=== PATIENT | female | born 1985 | race Caucasian/White ===

== ENCOUNTER 2019-06-05 05:33 | Inpatient (IN) ==
--- NOTE | 2019-05-30 15:05 | PAT Medication Instructions ---
Medication Instructions Date of Service May 30, 2019 Home Medications buprenorphine HCl 8 mg sublingual tablet 8 mg SL BID vitamin,calcium,kbhegmrn-kmyr-mxmtt acid tablet 1 tab PO QAM aspirin 81 mg tablet,delayed release 81 mg PO QAM ondansetron 4 mg disintegrating tablet 4 mg PO .COMPLEX ASK your prescriber and surgeon aspirin 81 mg tablet,delayed release 81 mg PO QAM DO NOT take the morning of surgery vitamin,calcium,tabaqcgf-zxda-rwafc acid tablet 1 tab PO QAM Take morning of surgery With a small sip of water, OTHERWISE NOTHING TO EAT OR DRINK AFTER MIDNIGHT: buprenorphine HCl 8 mg sublingual tablet 8 mg SL BID (continue per anesthesiologist, Dr. Pedro Kitchen) ondansetron 4 mg disintegrating tablet 4 mg PO .COMPLEX Other Notes If you have any questions please call us at [phone] or [phone] or [phone] or [phone]
--- NOTE | 2019-05-30 15:50 | Anesthesiology Consultation ---
Date of Service May 30, 2019 Assessment & Plan (1) Encounter for pre-operative examination: - ASA for hx pre-eclampsia: instructions per OB/prescriber - Buprenorphine for hx opioid dependency: discussed with Dr. Pedro Kitchen- to continue as directed perioperatively. - No preop labs: Per OB, no labs to be done at PAT visit; ordered for AM day of c/s. Chart Review Chart Review: Acceptable Risk for Surgery (pending labs AM day of c/s) and Patient seen in Pre Admission Testing Teaching & Discussion Pre-Anesthesia Teaching/Discussion Notes: Instructed NPO after midnight before surgery,except medications with 15 cc of water. Medication instructions provided according to the [facility] guidelines. History Surgery Operation Date: 06/05/19 07:30 Proposed Procedures p Section in LD - Codi Loco MD, FACOG Height/Weight Height: 4 ft 11 in Weight: 51.3 kg Allergies Allergy/AdvReac Type Severity Reaction Status Date / Time No Known Drug Allergies Allergy Verified 05/30/19 14:57 FOOD DYE AdvReac Unknown MIGRAINES Uncoded 05/23/19 14:06 Medications Home Medications Medication Instructions Recorded Confirmed Last Taken buprenorphine HCl 8 mg sublingual 8 mg SL BID tab 05/15/19 05/30/19 Unknown tablet 1 tab PO QAM 05/15/19 05/30/19 Unknown vitamin,calcium,zaongpld-nxbv-tysau acid tablet aspirin 81 mg tablet,delayed 81 mg PO QAM 05/19/19 05/30/19 Unknown release ondansetron 4 mg disintegrating 4 mg PO .COMPLEX tab 05/23/19 05/30/19 Unknown tablet Past Medical History Medical History Anemia History of pre-eclampsia on ASA with current History of seizure disorder Last medically evaluated seizure 14 years ago- per patient, there was discussion of meds but patient did not get them. Since then no further documented seizures, but has had ? pseudoseizures characterized as having headaches/vomiting/body tensing episodes but did not get these evaluated- no issues x ~1 year Exercise / Class Metabolic Activity III < 4 Walking/Shop/Light housework Past Family History Family History Grandmother (Paternal) Breast cancer Mother Dyslipidemia Drinking problem Arthritis Other Anxiety Clotting disorder Depression Kidney disease Briones syndrome Past Surgical History Surgical History History of delivery 2005: emergency c/s d/t pre-eclampsia: spinal vs. epidural used (good pain control during c/s) History of oral surgery Past Anesthesia History No Hx of Anesthesia Complications Mother- ? local anesthesia reaction; no further details History of PONV No Hx of PONV and No Hx of Motion Sickness Social History Smoking Status: Current every day smoker tobacco type: cigarettes Smoking cigarettes per day: 7-8 cigarettes/day; total use x 20 years Do You Dip or Chew Tobacco: No Hx Alcohol Use: No Hx Substance Use: No Last Used Substance Other:: on buprenorphine 2/2 hx opioid dependence Review of Systems related LBP and reflux. Patient denies chest pain, shortness of breath, cough, wheezing, palpitations. Physical Exam Vital Signs VITALS BP 111/72 P 77 TEMP 98.4 SP02 98%RA RESP 16 PHYSICAL Full neck and c-spine range of motion. Full TMJ range of motion. TMD 3 finger breaths Mallampati Score 1 Dentition: full dentures upper/lower; edentulous Lungs: clear throughout to auscultation Cardiac: regular rate and rhythm, no murmurs noted Spine: normal Extremities: no edema
--- NOTE | 2019-05-30 17:54 | History and Physical Report ---
DATE OF ADMISSION: 06/05/2019 ADMIT DIAGNOSES: 1. Intrauterine at 39 and 1/7 weeks. 2. History of a previous section at 37 weeks for preeclampsia, desires repeat. 3. Drug dependence in on Subutex. 4. Positive marijuana screen at her new OB visit. HISTORY OF PRESENT ILLNESS: Maricel is a 34-year-old white female 2, para 0-1-0-1 who presents for repeat section. The patient's history is significant for a primary section, which by operative report is low transverse section at 27 weeks at [facility]. This was complicated by preeclampsia. She delivered a 2 pound 8 ounce baby. She has been on a baby aspirin throughout this and has done well without signs and symptoms of preeclampsia. She does, however, desire a repeat section. She did have a low lying placenta at some point in this which was resolved at 32 weeks. She has a history of drug dependence, is currently on Subutex 8 mg twice daily. She had a positive drug screen for marijuana at her new OB visit. She understands she will be screened on admission. She is Rh negative and received RhoGAM. She notes good movement. A lot of pressure, but no contractions, no bleeding or leaking. ALLERGIES: FOOD DYES, but no known drug allergies. MEDICATIONS: Zofran, Subutex 8 mg twice a day, vitamin and an 81 mg aspirin daily. PAST MEDICAL HISTORY: Significant for the preeclampsia. She has a history of migraines and history of seizures, but seizures have not been an issue for her. She has had varicella vaccination. SOCIAL HISTORY: The patient continues to smoke in this approximately 1 pack a day. She has used marijuana on and off prior to , but denies using it in after her positive urine drug screen. She denies alcohol use. She is on Subutex for history of drug use. PAST SURGICAL HISTORY: Includes . PHYSICAL EXAMINATION: GENERAL: This is a well-developed, well-nourished white female in no acute distress. VITAL SIGNS: Blood pressure 112/71, weighing 113 pounds, BMI is 22. ABDOMEN: Gravid, soft and nontender. EXTREMITIES: Benign. PELVIC: Deferred. LABORATORY DATA: Blood type AB negative, antibody negative, Pap negative, rubella immune, RPR nonreactive, hepatitis B and HIV negative, chlamydia and gonorrhea negative, cystic fibrosis negative, SMA negative. Diabetes screen x2 within normal limits. Panorama low risk male. GBS positive. ASSESSMENT: Maricel is a 34-year-old white female 2, para 0-1-0-1 with a history of a primary low transverse section for severe preeclampsia at 27 weeks in her previous . She desires repeat section. This has also been complicated by Subutex use, positive marijuana screen, Rh negative status, GBS positive. The risks, benefits and side effects of repeat section were discussed with the patient including the risks of anesthesia, bleeding requiring transfusion, infection, poor wound healing, damage to surrounding structures including bowel, bladder, vessels, nerves and ureters with need for further surgery, hospitalization or intervention. Discussed the risk of any surgery including heart attack, blood clot, stroke and . The patient declines sterilization. Discussed that she should bring in her Subutex and its prescription bottle that we will provide that to her while hospitalized, but that she would need to get back on her own prescription in the immediate period and would need to follow up within 1-2 days with her provider. She understands that she will have a short prescription approximately 14 Percocet and that she will receive no further narcotics after that from our office unless there is a complication. She will not need to be treated for group B strep unless labors beforehand. We discussed the possibility of that. Questions were asked and answered. Consent reviewed and signed.
[2019-06-05] MEDS ORDERED: CEFAZOLIN 2,000 MG in SYRINGE 0 ML IV STA (05:37)
[2019-06-05] MEDS ORDERED: CITRIC ACID/SODIUM CITRATE 15 ML UDC PO STA (05:37)
[2019-06-05] MEDS ORDERED: LACTATED RINGER'S 1,000 ML IV STA (05:37)
[2019-06-05 05:58] LABS: Basophils # (auto) 0.03 K/uL (0-0.2); Basophils % (auto) 0.3 %; Eosinophils # (auto) 0.09 K/uL (0-0.5); Eosinophils % (auto) 0.8 %; Hemoglobin 10.4 g/dL (12.0-16.0); Immature Granulocytes # (auto) 0.06 K/uL (0.00-0.02); Immature Granulocytes % (auto) 0.5 %; Lymphocytes # (auto) 3.24 K/uL (1.2-3.4); Lymphocytes % (auto) 29.6 %; Mean Corpuscular Volume 81.4 fL (80-100); Mean Platelet Volume 9.6 fL (7.4-10.4); Monocytes # (auto) 0.81 K/uL (0.11-0.59); Monocytes % (auto) 7.4 %; Neutrophils # (auto) 6.72 K/uL (1.4-6.5); Neutrophils % (auto) 61.4 %; Platelet Count 104 K/uL (130-400); RDW Coefficient of Variation 14.8 % (11.5-14.5); RDW Standard Deviation 43.8 fL (36.4-46.3); Red Blood Count 3.81 M/uL (4.2-5.4); White Blood Count 10.95 K/uL (4.8-10.8)
[2019-06-05 06:01] LABS: Mean Corpuscular Hgb Conc 33.5 g/dL (32-36)
[2019-06-05 06:27] LABS: Appearance Urine Clear (Clear); Bacteria Urine Automated Negative (Negative); Bilirubin Urine Negative (Negative); Blood Urine 1+ (Negative); Color Urine Yellow; Epithelial Cell Urine Auto >30 /lpf (0-5); Glucose Urine UA Negative (Negative); Ketones Urine Negative (Negative); Leukocyte Esterase Urine Negative (Negative); Nitrite Urine Negative (Negative); Specific Gravity Urine 1.015 (1.000-1.030); Urobilinogen Urine Negative (Negative)
[2019-06-05 06:28] LABS: Amphetamines+Metham, Urine Neg (Neg); Barbiturates, Urine Neg (Neg); Benzodiazepine, Urine Neg (Neg); Cocaine, Urine Neg (Neg); MDMA (Ecstacy), Urine Neg (Neg); Methadone, Urine Neg (Neg); Opiate, Urine Neg (Neg); Phencyclidine, Urine Neg (Neg)
[2019-06-05 06:30] LABS: Protein Urine Negative (Negative)
[2019-06-05] MEDS ORDERED: fentaNYL citrate 100 MCG/2 ML VIAL ONE (07:00)
[2019-06-05] MEDS ORDERED: MoRPHine SULFATE PF 1 MG/ML 10 ML AMP/VIAL ONE (07:00)
--- NOTE | 2019-06-05 07:23 | History & Physical Bridge Note ---
Date of Service June 05, 2019 History & Physical Bridge Note I have examined the patient, reviewed the History & Physical and in the interval since the performance of the History & Physical I have noted the following changes of clinical significance: no changes noted
[2019-06-05] MEDS ORDERED: OXYTOCIN 10 UNITS/ML VIAL ONE (07:30)
[2019-06-05] MEDS ORDERED: PHENYLEPHRINE 100MCG/ML 5ML SYR ONE (07:30)
[2019-06-05] MEDS ORDERED: BUPIVACAINE 0.25% 30 ML VIAL ONE (07:36)
[2019-06-05] MEDS ORDERED: LACTATED RINGER'S 500 ML IV PRN (07:43)
[2019-06-05] MEDS ORDERED: NALOXONE HCL 1 MG in SODIUM CHLORIDE 0.9% 1000ML 1,000 ML IV PRN (07:43)
[2019-06-05] MEDS ORDERED: ePHEDrine sulfate 50 MG/ML AMP IV PRN (07:43)
[2019-06-05] MEDS ORDERED: ONDANSETRON INJ 2 MG/ML 2 ML VIAL IV PRN (07:43)
[2019-06-05] MEDS ORDERED: NALOXONE HCL 0.08 MG in SYRINGE 1.8 ML IV PRN (07:43)
[2019-06-05] MEDS ORDERED: NALBUPHINE HCL INJ 10 MG/ML AMP IV PRN (07:43)
[2019-06-05] MEDS ORDERED: MoRPHine SULFATE PF 1 MG/ML 10 ML AMP/VIAL INT SPINAL ONE (07:43)
[2019-06-05] MEDS ORDERED: HYDROmorphone INJ 0.5 MG/0.5 ML SYR IV PRN (07:43)
[2019-06-05] MEDS ORDERED: MoRPHine SULFATE 2 MG/ML CARP IV PRN (07:43)
[2019-06-05] MEDS ORDERED: PROMETHAZINE HCL 12.5 MG in SODIUM CHLORIDE 0.9% 50 ML IV PRN (07:43)
[2019-06-05] MEDS ORDERED: NALOXONE HCL 0.4 MG/1 ML VIAL/CARP IV PRN (07:43)
[2019-06-05] MEDS ORDERED: DiphenhydrAMINE HCL 50 MG/ML VIAL IV PRN (07:43)
[2019-06-05] MEDS ORDERED: NO NARCOTICS OR SEDATIVES SCH (07:45)
[2019-06-05] MEDS ORDERED: DC INTRASPINAL MORPHINE SCH (07:45)
[2019-06-05] MEDS ORDERED: SODIUM CHLORIDE 0.9% 1000ML 1,000 ML IV SCH (07:45)
[2019-06-05] MEDS ORDERED: ONDANSETRON INJ 2 MG/ML 2 ML VIAL ONE (08:01)
[2019-06-05] MEDS ORDERED: MIDAZOLAM HCL 1 MG/ML 2ML VIAL ONE (08:14)
--- NOTE | 2019-06-05 08:31 | Post Operative Brief Note ---
PG Immediate Post Op with CF Date of Surgery June 05, 2019 Pre & Post Diagnosis Operation Date: 06/05/19 07:30 Pre-Op Diagnosis: History of Section intrauterine at 39 weeks Post-Op Diagnosis: History of Section intrauterine at 39 weeks delivery of viable male infant at 0758 Procedure Operation Date: 06/05/19 07:30 Actual Procedures p Repeat lower transverse Section in LD(Bilateral) - Codi Loco MD, FACOG Surgeon Codi Loco MD, FACOG Associate Merchandise Planner Kandis Sutton RN Estimated Blood Loss 500 Findings Consistent with Post-Op Diagnosis Specimens Specimen Description: 1. Cord blood 2. placenta Drains Marie Catheter
--- NOTE | 2019-06-05 09:03 | Anesthesiology Progress Note ---
Date of Service June 05, 2019 Anesthesia Post Procedure Vital Signs Vital Signs: Temp Pulse Resp BP Pulse Ox 06/05/19 09:01 50 L 117/76 06/05/19 09:00 51 L 100 06/05/19 08:55 55 L 100 06/05/19 08:51 51 L 110/73 06/05/19 08:50 51 L 100 06/05/19 07:30 18 06/05/19 07:12 65 124/78 06/05/19 07:10 36.6 C 06/05/19 05:51 36.8 C 06/05/19 05:48 75 130/85 Transfer of Care Handoff Completed per policy Notes Mental Status: alert / awake / arousable Patient Amnestic to Procedure: Yes Nausea / Vomiting: adequately controlled Pain: adequately controlled Airway Patency, RR, SpO2: stable & adequate BP & HR: stable & adequate Hydration State: stable & adequate Neuraxial Anesthesia: was administered and sensory block is resolving Anesthetic Complications: no major complications apparent and Pt Satisfied with anesthetic care
[2019-06-05] MEDS ORDERED: HYDROCORTISONE ACETATE 25 MG SUPP PR PRN (09:06)
[2019-06-05] MEDS ORDERED: MAGNESIUM HYDROXIDE SUSP 30 ML UDC PO PRN (09:06)
[2019-06-05] MEDS ORDERED: DIPHTHERIA/TETANUS/PERTUSSIS 0.5 ML SYR/VIAL IM ONE (09:06)
[2019-06-05] MEDS ORDERED: SENNA 8.6 MG TAB PO PRN (09:06)
[2019-06-05] MEDS ORDERED: SUPERCREAM 0.870% 15 GM JAR EXT PRN (09:06)
[2019-06-05] MEDS ORDERED: BENZOCAINE 20% AER SPR 82.5 GM CAN EXT PRN (09:06)
[2019-06-05] MEDS: KETOROLAC 30 MG/ML VIAL IV PRN ×2 (09:23→19:32)
[2019-06-05] MEDS ORDERED: LACTATED RINGER'S 1,000 ML IV SCH (09:40)
[2019-06-05] MEDS ORDERED: OXYTOCIN 20 UNITS in LACTATED RINGER'S 1,000 ML IV SCH (09:40)
--- NOTE | 2019-06-05 10:10 | Operative Report ---
DATE OF OPERATION: 06/05/2019 PREOPERATIVE DIAGNOSES: 1. Intrauterine at 39+ weeks. 2. History of previous section, desires repeat. POSTOPERATIVE DIAGNOSES: 1. Intrauterine at 39+ weeks. 2. History of previous section, desires repeat. PROCEDURE: Repeat lower transverse section. SURGEON: Codi Loco MD. HOSPICE LIAISON: Kandis Sutton RN. ANESTHESIA: Spinal. ESTIMATED BLOOD LOSS: 500 mL. FLUIDS: 1000 mL. URINE OUTPUT: 250 mL of clear yellow urine drained from the bladder at the end of procedure. INDICATIONS: The patient is a 2, para 1 with a previous section at 28 weeks for severe preeclampsia. She presents today at term for desired repeat section. FINDINGS: Normal uterus, tubes and ovaries were noted bilaterally. She delivered a viable male infant weighing 5 pounds 5 ounces with Apgars of 8 and 9. COMPLICATIONS: None. DRAINS: Marie. DISPOSITION: To Recovery Room in stable condition. DESCRIPTION OF PROCEDURE: The patient was taken to the Operating Room where she was identified verbally and by bracelet. She was seated on the operating table where spinal anesthetic was placed by Anesthesia without difficulty. She was then placed in dorsal supine position with a leftward tilt. A Marie catheter was placed. She was prepped and draped in normal sterile fashion. She was tested and her anesthetic was found to be adequate. Time-out was held identifying correct patient, position and procedure and preoperative antibiotics. A Pfannenstiel skin incision was made over her previous skin incision with a knife, taken down to the underlying layer of fascia with knife and Bovie electrocautery. The fascia was incised with the knife in the midline and taken out laterally with scissors. The superior edge of the fascial incision was grasped, elevated and the underlying layer of rectus muscle was taken off bluntly with scissors. In a similar fashion, the inferior edge of the fascial incision was grasped, elevated and the underlying layer of rectus muscle was taken off bluntly and with scissors. The muscles were bluntly and sharply in the midline. The peritoneum was entered bluntly and the incision was stretched. The bladder blade was placed. The vesicouterine peritoneum was identified and entered with sharp scissors, taken out laterally with scissors and the bladder flap was created digitally. The bladder blade was replaced. The hysterotomy incision was scored with a knife. It was entered with a snap. Copious amounts of clear fluid were released. The incision was stretched with the offset printing operator's fingers. The offset printing operator's hand was placed into the uterus and the head was delivered atraumatically through the hysterotomy incision. The nose and mouth were bulb suctioned. There was no nuchal cord. The rest of the was delivered without difficulty. The nose and mouth were again bulb suctioned. The cord was clamped and cut. The infant was handed off to the waiting presiding steward for drying and attention. Cord blood and segment were obtained. Placenta was extracted from the uterus by massage. The uterus was exteriorized and cleared of all clot and debris with moist laparotomy sponges. Hysterotomy incision was repaired in 2 layers, the first in a running locked 0 Vicryl layer, the second in an imbricating 0 Vicryl layer. A ybijfv-uv-[id number] suture was needed in the midline for hemostasis and then hemostasis was noted to be excellent. Posterior cul-de-sac was irrigated and cleared of all clot and debris. The hysterotomy incision was again inspected and found to be hemostatic. The uterus was reanteriorized. The hysterotomy incision was again inspected and found to be hemostatic. The muscles were reapproximated with several interrupted sutures of 0 Vicryl in the midline. The fascia was reapproximated with 0 Vicryl starting at the corners and meeting at the midline. Subcuticular tissue was hemostatic and the skin was then closed with subcuticular stitch of 4-0 Vicryl. All sponge, lap and needle counts were correct x2. The patient tolerated the procedure well and was taken to the Recovery Room in stable condition. I attest to the content of the Intraoperative Record and any orders documented therein. Any exception s are noted below.
[2019-06-05] MEDS: ACETAMINOPHEN 1,000 MG/100 ML VIAL IV SCH ×2 (10:58→18:08)
[2019-06-05] MEDS: NICOTINE 21 MG/24 HR TDSY TD SCH (13:46)
[2019-06-05] MEDS: SIMETHICONE 80 MG CHEW PO SCH ×3 (13:47→20:08)
[2019-06-05] MEDS ORDERED: Nursing to Pharmacy Communication ONE (16:36)
[2019-06-05] MEDS: BUPRENORPHINE HCL 8 MG SUBL SL SCH (17:14)
[2019-06-05] MEDS: DOCUSATE SODIUM 100 MG CAP PO SCH (20:08)
[2019-06-05] MEDS ORDERED: BUPRENORPHINE HCL 8 MG SUBL SL SCH (21:00)
[2019-06-06] MEDS: KETOROLAC 30 MG/ML VIAL IV PRN (01:37)
[2019-06-06] MEDS ORDERED: ONDANSETRON INJ 2 MG/ML 2 ML VIAL IV PRN (01:44)
[2019-06-06] MEDS ORDERED: KETOROLAC 30 MG/ML VIAL IV PRN (01:44)
[2019-06-06] MEDS ORDERED: MEPERIDINE HCL 50 MG/ML CARP IV PRN (01:44)
[2019-06-06] MEDS ORDERED: DiphenhydrAMINE HCL 50 MG/ML VIAL IV PRN (01:44)
[2019-06-06] MEDS ORDERED: PROMETHAZINE HCL 25 MG in SODIUM CHLORIDE 0.9% 50 ML IV PRN (01:44)
[2019-06-06] MEDS: ACETAMINOPHEN 1,000 MG/100 ML VIAL IV SCH ×2 (02:21→10:00)
--- NOTE | 2019-06-06 06:36 | Obstetrical Progress Note ---
Date of Service <Magda Blair MD - Last Filed: 06/06/19 06:44> June 06, 2019 Assessment & Plan <Magda Blair MD - Last Filed: 06/06/19 06:44> (1) Status post : Maricel is a 34 yo on POD 1 after elective repeat C/S. - GBS +, Blood Type AB -, Rubella immune -Vitals reviewed and WNL (Tmax 36.8) -baby's blood type B+; order dose of Rhogam today -per nursing: patient's current dose of Subutex was confirmed from prescribing clinic; UDS from admission clean (06/05) -patient with expected post-op recovery encourage ambulation, progress diet as tolerated, provide analgesia as needed, monitor lochia - After discharge will have [address] Loco. Subjective <Magda Bliar MD - Last Filed: 06/06/19 06:44> Ambulation: ambulating normally Voiding: no voiding problems Passing Gas:: Yes Diet Tolerance:: regular diet Lochia:: Small Feeding Type:: breast feeding Current Pain Level(1-10): 5 patient examined at bedside Constitutional: no fever, no chills and no sweats Respiratory: no cough and no dyspnea Cardiovascular: no chest pain and no palpitations Breast: no breast pain Gastrointestinal: no nausea and no vomiting Genitourinary (female): no dysuria and no urinary frequency Neurologic: no headache(s) Physical Exam <Magda Blair MD - Last Filed: 06/06/19 06:44> Constitutional WD/WN, vitals as above no acute distress Respiratory normal respiratory effort, lungs clear to auscultation does not use accessory muscles Auscultation: no crackles, no rhonchi, no wheezes and no pleural rub Cardiovascular Rate/Rhythm: regular rate and regular rhythm Heart Sounds: normal S1 and normal S2; no gallop, no murmur and no cardiac rub Extremities: no calf tenderness and no pedal edema Gastrointestinal (Abdomen) Inspection/Auscultation: normal bowel sounds; abdomen not distended Percussion/Palpation: abdomen soft Genitourinary Uterus: fundus firm, palpable 1 cm below the umbilicus surgical incision: dressing in place and dry; no visible dried blood or discharge; appropriate post-op tenderness. Results & Data <Magda Blair MD - Last Filed: 06/06/19 06:44> Vital Signs (Past 12 Hours) Vital Signs Temp Pulse Resp BP Pulse Ox 06/06/19 04:50 36.8 C 68 16 108/67 99 06/06/19 01:43 20 96 06/06/19 00:26 18 95 06/05/19 23:55 36.7 C 78 20 110/64 98 06/05/19 23:10 20 95 06/05/19 22:27 18 96 06/05/19 21:30 18 96 06/05/19 20:30 18 96 06/05/19 19:25 36.5 C 70 18 106/69 97 <Codi Loco MD, FACOG - Last Filed: 06/06/19 07:46> Co-Signing Physician Notes Resident Physician Supervision Note: I interviewed and examined the patient. Discussed with Dr. Blair and agree with findings and plan as documented in the note. Any exceptions or clarifications are listed here: Doing well. Routine ppd 1. She is bottle feeding, not breast feeding. Documented By: Codi Loco MD, FACOG Resident Activity Tracking <Magda Blair MD - Last Filed: 06/06/19 06:44> Resident Involvement: Resident Care Provided Care Provided: OB Delivery
[2019-06-06 06:49] LABS: Basophils # (auto) 0.03 K/uL (0-0.2); Basophils % (auto) 0.3 %; Eosinophils # (auto) 0.14 K/uL (0-0.5); Eosinophils % (auto) 1.5 %; Hemoglobin 8.4 g/dL (12.0-16.0); Immature Granulocytes # (auto) 0.04 K/uL (0.00-0.02); Immature Granulocytes % (auto) 0.4 %; Lymphocytes # (auto) 2.88 K/uL (1.2-3.4); Lymphocytes % (auto) 29.9 %; Mean Corpuscular Hgb Conc 32.3 g/dL (32-36); Monocytes # (auto) 0.56 K/uL (0.11-0.59); Monocytes % (auto) 5.8 %; Neutrophils # (auto) 5.97 K/uL (1.4-6.5); Neutrophils % (auto) 62.1 %; Platelet Count 100 K/uL (130-400); RDW Coefficient of Variation 14.9 % (11.5-14.5); RDW Standard Deviation 44.4 fL (36.4-46.3); Red Blood Count 3.17 M/uL (4.2-5.4); White Blood Count 9.62 K/uL (4.8-10.8)
[2019-06-06] MEDS: NICOTINE 21 MG/24 HR TDSY TD SCH (09:15)
[2019-06-06] MEDS: SIMETHICONE 80 MG CHEW PO SCH ×4 (09:16→20:40)
[2019-06-06] MEDS: DOCUSATE SODIUM 100 MG CAP PO SCH ×2 (09:16→20:40)
[2019-06-06] MEDS: BUPRENORPHINE HCL 8 MG SUBL SL SCH ×2 (09:17→17:40)
[2019-06-06] MEDS: PRENATAL VITAMIN 1 TAB PO SCH (09:17)
[2019-06-06] MEDS: FERROUS SULFATE 325 MG TAB PO SCH (09:21)
[2019-06-06] MEDS: OXYCODONE/ACETAMINOPHEN 5mg/325mg TAB PO PRN ×3 (09:24→19:51)
[2019-06-06] MEDS: IBUPROFEN 600 MG TAB PO PRN ×3 (09:24→19:51)
[2019-06-06] MEDS ORDERED: BISACODYL 5 MG TABEC PO SCH (20:00)
[2019-06-07] MEDS: OXYCODONE/ACETAMINOPHEN 5mg/325mg TAB PO PRN ×5 (00:32→22:50)
--- NOTE | 2019-06-07 05:57 | Obstetrical Progress Note ---
Date of Service <Magda Blair MD - Last Filed: 06/07/19 06:48> June 07, 2019 Assessment & Plan <Magda Blair MD - Last Filed: 06/07/19 06:48> (1) Status post : Maricel is a 34 yo on POD 2 after elective repeat C/S. - GBS +, Blood Type AB -, Rubella immune; received 1 unit of Rhogam (06/06) -Vitals reviewed and WNL (Tmax 36.8) -hemoglobin reviwed; 10.4 on admission, down to 8.4 yesterday; oral iron supplement ordered -patient with expected post-op recovery continue with routine post op care - After discharge will have [address] Loco. Subjective <Magda Blair MD - Last Filed: 06/07/19 06:48> Ambulation: ambulating normally Voiding: no voiding problems Passing Gas:: Yes Diet Tolerance:: regular diet Lochia:: Small Feeding Type:: bottle feeding Current Pain Level(1-10): 4 examined at bedside Physical Exam <Magda Blair MD - Last Filed: 06/07/19 06:48> Constitutional WD/WN, vitals as above no acute distress Respiratory normal respiratory effort, lungs clear to auscultation does not use accessory muscles Auscultation: no crackles, no rhonchi, no wheezes and no pleural rub Cardiovascular Rate/Rhythm: regular rate and regular rhythm Heart Sounds: normal S1 and normal S2; no gallop, no murmur and no cardiac rub Extremities: no calf tenderness and no pedal edema Gastrointestinal (Abdomen) Inspection/Auscultation: normal bowel sounds; abdomen not distended Percussion/Palpation: abdomen soft Results & Data <Magda Blair MD - Last Filed: 06/07/19 06:48> Vital Signs (Past 12 Hours) Vital Signs Temp Pulse Resp BP 06/06/19 19:40 36.7 C 71 18 115/75 <Litzy Esteves DO - Last Filed: 06/07/19 08:47> Co-Signing Physician Notes Resident Physician Supervision Note: I was present with Dr. Blair during the history and exam. I discussed the case with the resident and agree with the findings and plan as documented in the note. Any exceptions or clarifications are listed here: POD#3 doing well. Feels like pain is controlled with tylenol. Anticipate baby needing to stay beyond patient's stay, will plan for patient's discharge tomorrow. Documented By: Litzy Esteves, DO Resident Activity Tracking <Magda Blair MD - Last Filed: 06/07/19 06:48> Resident Involvement: Resident Care Provided Care Provided: OB Delivery
[2019-06-07 06:34] LABS: Hematocrit (blood only) 26.3 % (37-47); Hemoglobin 8.5 g/dL (12.0-16.0)
[2019-06-07] MEDS: IBUPROFEN 600 MG TAB PO PRN ×4 (08:13→22:51)
[2019-06-07] MEDS ORDERED: BISACODYL 10 MG SUPP PR PRN (08:38)
[2019-06-07] MEDS: DOCUSATE SODIUM 100 MG CAP PO SCH ×2 (09:50→20:52)
[2019-06-07] MEDS: BUPRENORPHINE HCL 8 MG SUBL SL SCH ×2 (09:51→17:22)
[2019-06-07] MEDS: FERROUS SULFATE 325 MG TAB PO SCH (09:51)
[2019-06-07] MEDS: SIMETHICONE 80 MG CHEW PO SCH ×4 (09:51→20:52)
[2019-06-07] MEDS: PRENATAL VITAMIN 1 TAB PO SCH (09:51)
[2019-06-07] MEDS: NICOTINE 21 MG/24 HR TDSY TD SCH (09:56)
[2019-06-08] MEDS: OXYCODONE/ACETAMINOPHEN 5mg/325mg TAB PO PRN ×3 (06:15→21:20)
[2019-06-08] MEDS: IBUPROFEN 600 MG TAB PO PRN ×4 (06:16→21:19)
--- NOTE | 2019-06-08 07:02 | Obstetrical Progress Note ---
Date of Service <Magda Blair MD - Last Filed: 06/08/19 07:03> June 08, 2019 Assessment & Plan <Magda Blair MD - Last Filed: 06/08/19 07:03> (1) Status post : Maricel is a 34 yo on POD 3 after elective repeat C/S. - GBS +, Blood Type AB -, Rubella immune; received 1 unit of Rhogam (06/06) -Vitals reviewed and WNL -hemoglobin reviewed; 8.4 on 06/07, started oral iron supplement -patient on Subutex; managing pain with Tylenol with an analgesia goal of 5/10 or lower in severity -patient with expected post-op recovery continue with routine post op care - After discharge will have [address] Loco. Subjective <Magda Blair MD - Last Filed: 06/08/19 07:03> Ambulation: ambulating normally Voiding: no voiding problems Passing Gas:: Yes Diet Tolerance:: regular diet Lochia:: Small Feeding Type:: bottle feeding Current Pain Level(1-10): 9 patient examined at bedside Physical Exam <Magda Blair MD - Last Filed: 06/08/19 07:03> Constitutional WD/WN, vitals as above no acute distress Respiratory normal respiratory effort, lungs clear to auscultation does not use accessory muscles Auscultation: no crackles, no rhonchi, no wheezes and no pleural rub Cardiovascular Rate/Rhythm: regular rate and regular rhythm Heart Sounds: normal S1 and normal S2; no gallop, no murmur and no cardiac rub Extremities: no calf tenderness and no pedal edema Gastrointestinal (Abdomen) Inspection/Auscultation: normal bowel sounds; abdomen not distended Percussion/Palpation: abdomen soft Results & Data <Magda Blair MD - Last Filed: 06/08/19 07:03> Vital Signs (Past 12 Hours) Vital Signs Temp Pulse Resp BP 06/08/19 00:15 36.7 C 56 L 18 123/79 06/07/19 19:35 36.4 C L 55 L 18 119/74 <Ron Sethi Jr, MD, FACOG - Last Filed: 06/08/19 07:54> Co-Signing Physician Notes Resident Physician Supervision Note: I was present with Dr. Blair during the history and exam. I discussed the case with the resident and agree with the findings and plan as documented in the note. Any exceptions or clarifications are listed here: Pain controlled, baby with weight loss, routine post-op care Documented By: Ron Sethi Jr, MD, FACOG
[2019-06-08] MEDS: FERROUS SULFATE 325 MG TAB PO SCH (08:53)
[2019-06-08] MEDS: PRENATAL VITAMIN 1 TAB PO SCH (08:53)
[2019-06-08] MEDS: NICOTINE 21 MG/24 HR TDSY TD SCH (08:53)
[2019-06-08] MEDS: DOCUSATE SODIUM 100 MG CAP PO SCH ×2 (08:53→20:51)
[2019-06-08] MEDS: SIMETHICONE 80 MG CHEW PO SCH ×4 (08:53→20:52)
[2019-06-08] MEDS: BUPRENORPHINE HCL 8 MG SUBL SL SCH ×2 (09:21→17:35)
[2019-06-09] MEDS: IBUPROFEN 600 MG TAB PO PRN (06:52)
--- NOTE | 2019-06-09 07:06 | Obstetrical Progress Note ---
Date of Service <Magda Blair MD - Last Filed: 06/09/19 07:12> June 09, 2019 Assessment & Plan <Magda Blair MD - Last Filed: 06/09/19 07:12> (1) Status post : Maricel is a 34 yo on POD 4 after elective repeat C/S. - GBS +, Blood Type AB -, Rubella immune; received 1 unit of Rhogam (06/06) -Vitals reviewed and WNL -for breast discomfort, patient will apply ice packs -hemoglobin reviewed; 8.4 on 06/07, started oral iron supplement -patient on Subutex; managing pain with Tylenol with an analgesia goal of 5/10 or lower in severity -patient with expected post-op recovery reviewed discharge instructions. ready for d/c - After discharge will have [address] Loco. Subjective <Magda Blair MD - Last Filed: 06/09/19 07:12> Ambulation: ambulating normally Voiding: no voiding problems Passing Gas:: Yes Diet Tolerance:: regular diet Lochia:: Small Feeding Type:: bottle feeding Current Pain Level(1-10): 5 examined at bedside Constitutional: no fever, no chills and no sweats Respiratory: no cough and no dyspnea Cardiovascular: no chest pain Breast: + breast pain (secondary to fullness) Gastrointestinal: no abdominal pain, no nausea and no vomiting Physical Exam <Magda Blair MD - Last Filed: 06/09/19 07:12> Constitutional WD/WN, vitals as above no acute distress Neck normal visual inspection Respiratory normal respiratory effort, lungs clear to auscultation no cough Cardiovascular Rate/Rhythm: regular rate and regular rhythm Heart Sounds: normal S1 and normal S2; no click, no gallop, no murmur and no cardiac rub Extremities: no calf tenderness and no pedal edema Gastrointestinal (Abdomen) Inspection/Auscultation: + abdominal surgical incision (: steri strips in place; dry and minimal dried blood) Genitourinary OB Exam Abdomen: + fundal height Fundus: + firm and + relation to umbilicus (2 cm below) Results & Data <Magda Blair MD - Last Filed: 06/09/19 07:12> Vital Signs (Past 12 Hours) Vital Signs Temp Pulse Resp BP Pulse Ox 06/08/19 23:15 36.6 C 63 17 128/78 96 06/08/19 20:40 36.7 C 70 16 124/84 98 <Patricia Diamond MD, FACOG - Last Filed: 06/09/19 07:44> Co-Signing Physician Notes Resident Physician Supervision Note: I interviewed and examined the patient. Discussed with Dr. Blair and agree with findings and plan as documented in the note. Any exceptions or clarifications are listed here: [None] Documented By: Patricia Diamond MD, FACOG
[2019-06-09] MEDS: OXYCODONE/ACETAMINOPHEN 5mg/325mg TAB PO PRN (08:05)
[2019-06-09] MEDS: PRENATAL VITAMIN 1 TAB PO SCH (08:05)
[2019-06-09] MEDS: FERROUS SULFATE 325 MG TAB PO SCH (08:05)
[2019-06-09] MEDS: SIMETHICONE 80 MG CHEW PO SCH (08:05)
[2019-06-09] MEDS: DOCUSATE SODIUM 100 MG CAP PO SCH (08:05)
[2019-06-09] MEDS: NICOTINE 21 MG/24 HR TDSY TD SCH (09:21)
[2019-06-09] MEDS: BUPRENORPHINE HCL 8 MG SUBL SL SCH (09:21)
--- NOTE | 2019-06-12 21:58 | Discharge Summary ---
ADMISSION DIAGNOSES: 1. Intrauterine at 39 and 1/7 weeks. 2. History of previous section at 27 weeks for preeclampsia, desires repeat. 3. Drug dependency in , on Subutex. 4. Positive marijuana screen at her new OB visit. DISCHARGE DIAGNOSES: 1. Intrauterine at 39 and 1/7 weeks. 2. History of previous section at 27 weeks for preeclampsia, desires repeat. 3. Drug dependency in , on Subutex. 4. Positive marijuana screen at her new OB visit. PROCEDURE: Repeat lower transverse section. HISTORY OF PRESENT ILLNESS: Maricel is a 34-year-old white female 2, para 0-1-0-1, who presents for repeat section. The patient's history is significant for primary section, which by operative reports a low transverse section at 27 weeks at [place] [facility]. This was complicated by preeclampsia. She was delivered of a 2-pound 8-ounce baby. She has been on baby aspirin throughout this and has done well without signs or symptoms of preeclampsia. She does, however, desire a repeat section. She did have a low lying placenta at some point in her , which resulted at 32 weeks. She has a history of drug dependency, is currently on Subutex 8 mg twice daily. She had a positive drug screen for marijuana at her new OB visit. She is Rh negative and received RhoGAM. For the rest of the patient's detailed history and physical, please see a admit history and physical assessment. Maricel is a 34-year-old white female 2, P 0-1-0-1 with a history of primary low transverse section for severe preeclampsia at 27 weeks in a previous . She presents today for repeat section. HOSPITAL COURSE: The patient was admitted. She underwent a repeat lower transverse section without difficulty. Normal uterus, tubes and ovaries were noted bilaterally. She delivered a viable male infant weighing 5 pounds 5 ounces with Apgars of 8 and 9. Blood loss was 500 mL. The patient's postoperative course was uncomplicated. She tolerated a regular diet, ambulated without difficulty. Her pain was well controlled on oral pain meds. She continued to be managed on her Subutex 8 mg twice daily. She was discharged on postop day #3. She will follow up with her clinic for her Subutex maintenance. H and H on discharge was 8.5 and 26.3. She was asymptomatic from this standpoint. Her drug screen on admission was negative.
== END 2019-06-09 10:39 | disposition home or self-care (01) | DRG 787 ==
LOC: 4S1 05:33 → EDSTATUS 07:30 → 4S2 11:45